=== PATIENT | female | born 1985 | race Hispanic/Latino ===

== ENCOUNTER 2018-08-07 10:46 | Outpatient (CLI) | payer OTHER ==
--- NOTE | 2018-08-07 13:22 | ULT ---
ULTRASOUND OBSTETRICAL COMPLETE: DATE: 08/07/2018. HISTORY: A 33-year-old female in . Evaluate size and dates. FINDINGS: number: Clark. lie: Cephalic. Maternal cervix: Obscured. Placenta: Fundal. No placental previa. Amniotic fluid volume: WILLA 16 cm. heart rate: 147 b.p.m. The following anatomy is visualized, with no evidence of anomalies: Head, lateral ventricles, cerebellum, nose and lips, spine, upper limbs, lower limbs, four chamber he art, umbilical cord, cord insertion, stomach, kidneys, and bladder. biometry: Head circumference (HC): 16.9 cm 19 w 4 d Biparietal diameter (BPD): 4.6 cm 19 w 6 d Abdominal circumference (AC): 14.8 cm 20 w 1 d Femur length (FL): 2.9 cm 19 w 0 d Average ultrasound age (AUA): 19 w 5 d Estimated date of delivery (ROSEMARY): 12/27/2018. Last menstrual period (LMP): 03/08/2018. Gestational age by LMP: 21 w 5 d. Estimated weight (EFW): 298 g+/- 44 g (0 lb 11 oz+/- 2 oz). IMPRESSION: 1. Live 2nd trimester intrauterine gestation. 2. Estimated gestational age of 19 weeks, 5 days. 3. Cephalic lie. 4. No anatomical abnormalities. jn [] POS: [facility]
== END 2018-08-07 10:47 | disposition home or self-care (01) ==
LOC: BICULT 10:46
PROVIDERS: ATTEND Family Medicine
DX: Z34.82 Encounter for supervision of other normal pregnancy, second trimester (principal); Z3A.19 19 weeks gestation of pregnancy
CPT/HCPCS: 76805

== ENCOUNTER 2018-10-24 18:07 | Day surgery (SDC) | payer OTHER ==
--- NOTE | 2018-10-24 19:30 | PDOC.FPRHP ---
- History of Present Illness Chief Complaint: right sided swelling History of Present Illness: 33 yo @ 30.6wks with EDC 12/27 presents with right sided swelling and lower back pain since after school let out today. She was lifting a lot of boxes earlier today at school and was told by the school nurse that she should come be seen. She felt like her right hand was swollen. She denies contractions. Endorses movement. Denies VB, dysuria, discharge. She endorsed some lower back pain earlier but denies any back pain now. Actually, seeing her now, she denies any swelling, just noticed it earlier today. She has no sx currently. - Allergies/Adverse Reactions Allergies Allergy/AdvReac Type Severity Reaction Status Date / Time acetaminophen [From Tylenol] Allergy Intermediate Swollen Verified 10/24/18 18: 44 Lips - Home Medications Medication Instructions Recorded Confirmed Type 21/Iron Fu/Folic Acid 1 tablet PO DAILY 03/03/13 03/13/13 History [ Complete Caplet] Ferrous Sulfate [Yvon-Time] 325 mg PO BID 03/13/13 03/13/13 History HYDROcodone/Ibuprofen [Vicoprofen 1 - 2 each PO Q4HR 03/13/13 03/13/13 History 200-7.5 mg Tab] Lanolin Ointment [Lansinoh 1 applic TOP ASDIR PRN 03/13/13 03/13/13 History Ointment] - History PMHx: Prior hx of DVT four years ago on lovenox PSHx: CS x 2 FHx: none Social: denies smoking, alcohol, drug use - Review of Systems General: denies: fever/chills, fatigue Respiratory: denies: cough, congestion, shortness of breath Cardiovascular: denies: chest pain, palpitation, edema Gastrointestinal: denies: nausea, vomiting, diarrhea Genitourinary: denies: dysuria, discharge Skin: denies: rashes, itching Musculoskeletal: denies: pain, tenderness, stiffness, swelling Neurological: denies: numbness, syncope Psychological: denies: anxiety, depression - Vital signs BP: [] HR: [] RR: [] Tmax: [] Pox: []% on [] Wt: [] - Physical Exam Constitutional: NAD, awake, alert and oriented HEENT: normocephalic and atraumatic, PERRLA Neck: no LAD, no JVD, no thyromegaly Heart: RRR, no edema Lungs: no respiratory distress Abdomen: soft, non-tender Neurological: no focal deficit, CN II-XII intact Skin: no rash/lesions, capillary refill <2 seconds Heme/Lymphatic: no unusual bruising or bleeding, no purpura Psychiatric: normal mood and affect, good judgment and insight FMR H&P: A/P - Problem List (1) Third trimester Current Visit: Yes Status: Acute Code(s): Z34.93 - ENCNTR FOR SUPRVSN OF NORMAL PREG, UNSP, THIRD TRIMESTER (2) History of DVT of lower extremity Current Visit: Yes Status: Acute Code(s): Z86.718 - PERSONAL HISTORY OF OTHER VENOUS THROMBOSIS AND EMBOLISM - Plan Disposition/LOS: 33 yo @30.6wks here c/o of swelling of her entire right side earlier today and back pain, now asymptomatic. #sIUP- -Reactive NST, not praveen, +accels #c/o right sided swelling and back pain- -will get an ultrasound, cervical length and fibronectin #hx of DVT- -on lovenox HSaad Cheatham MD, PGY-2 FMR H&P: Upper Level - Plan Date/Time: 10/24/181927 IMarvin MD, have evaluated this patient and agree with findings/plan as outlined by marketing research intern resident. Pertinent changes/additions are listed here.
--- NOTE | 2018-10-24 19:41 | PDOC.LDHP ---
Labor and Delivery H&P Chief complaint: other (right leg swelling; HX DVT in past on lovenox) HPI: CC: right leg swelling and lower back pain HPI: 33 yo with EDC 12/27/18 with above complaints after moving items at work. No VB, no LOF, no recent trauma. Good FM. On lovenox for HX DVT in past ( 4 years ago). Review of Systems: complete ROS completed and as per HPI Current gestational age (weeks): 30 (6 days) Due date: 12/27/18 Dating criteria: last menstrual period Grav: 5 Para: 2 OB History Details: CS x 2 Current complications: none, other (remote HX DVT) Past Medical History: HX ectopic in past and SAB Previous surgical history: low tranverse CS (x2) Allergies/Adverse Reactions: Allergies Allergy/AdvReac Type Severity Reaction Status Date / Time acetaminophen [From Tylenol] Allergy Intermediate Swollen Verified 10/24/18 18: 44 Lips - Physical Exam Vital signs reviewed and normal: yes General: NAD Heart: RRR Lungs: CTAB Abdomen: gravid Extremeties: no edema FHT: category 1 Kenney contractions every: rare - Assessment Discomforts of at 30 weeks 6 days, pripor CS x 2, on lovenox for remote DVT HX - Plan Plan: observation in L&D (I have recommended doppler LE; CX length for irreg CTX hx and 2 CS HX, FFN if cervix short.)
--- NOTE | 2018-10-24 21:23 | ULT ---
Right lower extremity venous Doppler ultrasound evaluation HISTORY: right lower extremity swelling. Multiple longitudinal and transverse images of the right lower extremity venous systems obtained usin g multi hertz linear array transducer. Real-time, color flow and spectral waveform Doppler analysis demonstrates no evidence of acute or old clot seen in the right common femoral vein, superficial femo ral vein, femoral profunda, popliteal vein and right posterior tibial veins. No evidence of clot seen in the right greater saphenous vein. IMPRESSION: no evidence of right lower extremity deep venous thrombosis.
--- NOTE | 2018-10-24 21:24 | PDOC.EVN ---
Event Note - Event Note Event Note: Leg doppler neg and cx 4cm
--- NOTE | 2018-10-24 21:25 | ULT ---
Limited pelvic ultrasound history: Evaluate cervical length. Multiple longitudinal and transverse images of the cervix is obtained using multi hertz endovaginal t ransducer. Real-time images obtained. The cervical length measures 4.3 cm in length. IMPRESSION: Cervical length measures 4.3 cm.
== END 2018-10-24 21:24 | disposition home or self-care (01) ==
LOC: L&D/OP 18:07
PROVIDERS: ATTEND Family Medicine
DX: O26.893 Other specified pregnancy related conditions, third trimester (principal); M54.5 Low back pain; M79.89 Other specified soft tissue disorders; Z86.718 Personal history of other venous thrombosis and embolism; Z3A.30 30 weeks gestation of pregnancy; Z79.899 Other long term (current) drug therapy; Z88.6 Allergy status to analgesic agent
CPT/HCPCS: 99282

== ENCOUNTER 2018-11-06 14:31 | Day surgery (SDC) | payer OTHER ==
[2018-11-06] MEDS ORDERED: Iron Sucrose Complex 500 MG in Sodium Chloride 0.9% 250 ML 250 ML IVPB SCH (15:45)
[2018-11-06] MEDS ORDERED: Sodium Chloride 0.9% 1,000 ML IV SCH (15:45)
[2018-11-06 15:49] VITALS: BP 115/68; TEMP 98.3
[2018-11-06 15:53] VITALS: BMI 28.3
[2018-11-06] MEDS ORDERED: Butorphanol Tartrate 1 MG/ML VIAL ONE (20:33)
[2018-11-06] MEDS ORDERED: Butorphanol Tartrate 1 MG/ML VIAL SLOW IVP SCH (20:45)
[2018-11-06] MEDS ORDERED: Promethazine HCl 25 MG/ML VIAL SLOW IVP SCH (20:45)
== END 2018-11-06 23:10 | disposition home or self-care (01) ==
LOC: L&D/OP 14:31
PROVIDERS: ATTEND Family Medicine
DX: O99.019 Anemia complicating pregnancy, unspecified trimester (principal); D64.9 Anemia, unspecified; Z79.01 Long term (current) use of anticoagulants; Z88.8 Allergy status to other drugs, medicaments and biological substances
CPT/HCPCS: 96361; 96365; 96366; 96375; 99282; J0595; J1756; J2550; J7050

== ENCOUNTER 2018-12-17 05:45 | Inpatient (IN) | payer OTHER ==
[2018-12-17] MEDS ORDERED: hydrALAZINE 20 MG/ML VIAL SLOW IVP PRN (06:14)
[2018-12-17] MEDS ORDERED: Promethazine HCl 25 MG/ML VIAL IM PRN (06:14)
[2018-12-17] MEDS ORDERED: Ondansetron PF 4 MG/2 ML Vial IVP PRN (06:14)
[2018-12-17] MEDS ORDERED: CEFAZOLIN 2 GM in Premix Bag 1 BAG IVPB SCH (06:14)
[2018-12-17] MEDS ORDERED: Bicitra 30 ML UDCUP PO SCH (06:14)
[2018-12-17] MEDS ORDERED: MORPHINE 5 MG/10 ML PF VIAL ONE (06:30)
[2018-12-17] MEDS ORDERED: Fentanyl 100 MCG/2 ML VIAL ONE (06:30)
[2018-12-17] MEDS ORDERED: Oxytocin 10 UNITS/ML VIAL ONE (06:31)
[2018-12-17] MEDS ORDERED: Phenylephrine HCL 10 MG/ML VIAL ONE (06:31)
[2018-12-17] MEDS ORDERED: Ondansetron PF 4 MG/2 ML Vial ONE ×2 (06:31→07:55)
[2018-12-17] MEDS ORDERED: Ketorolac Tromethamine 30 MG/ML VIAL ONE (06:31)
[2018-12-17] MEDS ORDERED: ePHEDrine/0.9% NaCl/PF SYRINGE 50 mg/10 ml ONE (06:31)
[2018-12-17 06:37] VITALS: BMI 31.4
[2018-12-17 07:09] LABS: Hemoglobin 11.4 g/dL (12.0-16.0); Mean Corpuscular HGB CONC 33.3 g/dL (32.0-36.0); Mean Corpuscular Hemoglobin 29.2 pg (27.0-31.0); Mean Corpuscular Volume 87.5 fL (78.0-98.0); Mean Platelet Volume 9.2 fL (7.4-10.4); Platelet Count 193 thou/uL (130-400); RBC Distribution Width 14.4 % (11.5-14.5); White Blood Cell (WBC) Count 12.2 thou/uL (4.8-10.8)
[2018-12-17] MEDS ORDERED: Butorphanol Tartrate 1 MG/ML VIAL ONE (07:12)
[2018-12-17 07:14] LABS: Syphilis Antibody Nonreactive (Nonreactive); Syphilis Antibody Index 0.02 S/CO (<1.00 Non-Reactive)
[2018-12-17] MEDS: Lactated Ringer's 1,000 ML IV SCH ×2 (07:17→10:02)
--- NOTE | 2018-12-17 07:48 | CT ---
Head CT without contrast 12/17/2018: Comparison: None HISTORY: Headache, dilated left pupil TECHNIQUE: Axial CT imaging at 5 mm intervals from vertex through skull base without contrast FINDINGS: Imaged paranasal sinuses and mastoid air cells are well aerated. No displaced calvarial fra cture. No intracranial hemorrhage, midline shift, mass effect, or ventricular enlargement IMPRESSION: No acute findings
[2018-12-17] MEDS ORDERED: Metoclopramide HCl 10 MG/2 ML VIAL IVP SCH ×2 (08:00→09:00)
[2018-12-17] MEDS ORDERED: diphenhydrAMINE 50 MG/ML VIAL ONE (08:19)
[2018-12-17 08:29] LABS: HBSAg Index 1.12 S/CO (0-0.99)
[2018-12-17 08:30] LABS: Hep B Surf Ag Reflx Confirmation S/CO (NonReactive)
[2018-12-17] MEDS: diphenhydrAMINE 50 MG/ML VIAL IVP SCH ×2 (08:31→22:22)
--- NOTE | 2018-12-17 09:53 | MRI ---
MRI BRAIN WITHOUT CONTRAST: HISTORY: Headache, dilated left pupil CORRELATION: CT scan from 12/17/2018. FINDINGS: No restricted diffusion is seen. The ventricular size is appropriate and the basilar cisterns are pat ent. No evidence of acute infarct, hemorrhage, midline shift or abnormal extra-axial fluid collections is seen. The visualized paranasal sinuses and mastoid air cells are well-aerated. IMPRESSION: No evidence of acute intracranial process.
[2018-12-17 10:52] LABS: Bilirubin Negative (Negative); Blood, Urine Negative (Negative); Clarity Clear (Clear); Glucose, Urine (Dipstick) Normal (Negative); Leukocyte Negative Leu/uL (Negative); Nitrite Negative (Negative); Protein, Urine (Dipstick) Negative (Neg-Trace); Urobilinogen Normal mg/dL (Less than 2)
[2018-12-17 11:10] LABS: ALT (SGPT) 11 U/L (8-55); AST (SGOT) 16 U/L (5-34); Albumin 3.5 g/dL (3.5-5.0); Alkaline Phosphatase 162 U/L (40-150); Anion Gap 14 mmol/L (10-20); BUN (Urea Nitrogen) 12 mg/dL (7.0-18.7); Bilirubin, Total 0.5 mg/dL (0.2-1.2); Calc. Creatinine Clearance 195 mL/min (70-130); Calcium 9.5 mg/dL (7.8-10.44); Carbon Dioxide 20 mmol/L (22-29); Chloride 106 mmol/L (98-107); Estimated GFR-MDRD Greater than 90; Globulin 2.5 g/dL (2.4-3.5); Glucose 105 mg/dL (70-105); Potassium 3.8 mmol/L (3.5-5.1); Sodium 136 mmol/L (136-145)
--- NOTE | 2018-12-17 19:35 | CON ---
DATE OF CONSULTATION: 12/17/2018 CHIEF COMPLAINT: Blurred vision in the left eye. HISTORY OF PRESENT ILLNESS: I was called by her primary admitting MD who reported to me that they are seeing a pupillary dilatation, and they concerned about any intracranial event. The patient reports she has had migraine in the left side of the head, and this was associated blurred vision. At 2:30 a.m. in the morning, she woke up with a headache, and she felt the headache was around her left eye. She had a throbbing sensation. She never had migraines before. She never had casual headaches either. She was feeling nauseous. She had photophobia and did not have any phonophobia with this. She did not have any weakness or dizziness. Her primary symptom is headache with blurred vision on the left side. PREVIOUS MEDICAL HISTORY: She is and is here for her delivery. She is getting ready to deliver her child. Otherwise, she is healthy. MEDICATIONS: From home noted, she is not on any regular medications at home other than vitamins. PAST SURGICAL HISTORY: She had 2 C-sections. No other surgery. FAMILY HISTORY: Negative for any migraine headaches. SOCIAL HISTORY: She does not drink or smoke. 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 She lives with her family. REVIEW OF SYSTEMS: PULMONARY: Negative for cough or shortness of breath. GI: Negative for any nausea, vomiting, or diarrhea. CARDIOVASCULAR: Negative for any chest pain or palpitations. NEUROLOGIC: Positive for headache and blurred vision. DERMATOLOGIC: Negative for any rash. DIAGNOSTIC DATA: Her workup so far; MRI of the brain was reported as negative for any acute infarct or any acute intracranial process. CT of the head was also done and did not show any acute findings. Lab workup; white count 12.2, hemoglobin 11.4, hematocrit 34.1, and platelet count 193. Sodium 136, potassium 3.8, chloride 106, bicarb 20, BUN 12, creatinine 0.56, and alkaline phosphatase was slightly elevated at 162. Rest of the workup was negative. Urinalysis is negative. PHYSICAL EXAMINATION: VITAL SIGNS: Temperature was 98.1, pulse 104, and blood pressure 139/84. GENERAL APPEARANCE: Well-built, well-nourished lady, who is . CHEST: Clear vesicular breathing. CARDIOVASCULAR: S1 and S2 heard. No murmurs. ABDOMEN: Soft, uterus. NEUROLOGIC: Higher intellectual functions, normal orientation to time, place, and person and appropriate conversation. Cranial nerves 2 through 12, pupils right was 3 mm reactive to light. Left pupil was 4 mm and sluggishly reactive to light with a delayed response, and she has very mild facial asymmetries on the left side. Normal sensation of face bilaterally. Tongue midline. No atrophy noted. Normal elevation of palate. Motor examination; bulk normal and tone normal. Strength, 5/5 on the right side as well as left lower extremity. Left upper extremity strength was slightly weak with 5-/5. Muscle groups tested are deltoid, biceps, triceps, wrist extension and flexion, finger extension and flexion bilaterally and deep tendon reflexes were 1+ throughout. Sensory, normal to touch. Cerebellar, [id number] normal. [id number]-[id number] was also normal. IMPRESSION: The patient is a 33-year-old lady who is . She presents to the hospital with headache and blurred vision, and seamer elastic band's primary concern is the abnormal pupils. Currently, her CT is negative. MRI is negative. Neurological exam showed slightly sluggish reaction of the left pupil, and she had very mild weakness in the left arm association with the headache, which is unilateral, associated with nausea and the photophobia, is more consistent with a slightly complicated migraine event rather than any other intracranial event. RECOMMENDATIONS: Please use codeine as needed for migraine. I understand she received a headache cocktail from the Obstetrics Team. I will follow up with you as needed. Once the headache has resolved, she can follow up with Neurology as an outpatient. Job ID: [id number]
[2018-12-18 06:10] LABS: Hep B Surface AG-Rflx Sendout Negative (Negative)
[2018-12-18] MEDS ORDERED: MORPHINE 5 MG/10 ML PF VIAL ONE (06:55)
[2018-12-18] MEDS ORDERED: diphenhydrAMINE 50 MG/ML VIAL ONE ×2 (06:56→15:52)
[2018-12-18] MEDS ORDERED: Oxytocin 10 UNITS/ML VIAL ONE (06:56)
[2018-12-18] MEDS ORDERED: Phenylephrine HCL 10 MG/ML VIAL ONE (06:56)
[2018-12-18] MEDS ORDERED: Ondansetron PF 4 MG/2 ML Vial ONE ×2 (06:56→15:52)
[2018-12-18] MEDS ORDERED: Dexamethasone 4 mg/ml Vial ONE (06:56)
[2018-12-18] MEDS ORDERED: ePHEDrine/0.9% NaCl/PF SYRINGE 50 mg/10 ml ONE (06:56)
[2018-12-18] MEDS ORDERED: Ketorolac Tromethamine 30 MG/ML VIAL ONE ×2 (06:56→15:52)
[2018-12-18] MEDS ORDERED: HYDROmorphone 2 MG/ML VIAL SLOW IVP PRN (07:01)
[2018-12-18] MEDS ORDERED: Ondansetron HCl/PF 4 MG/2 ML Vial IVP PRN (07:01)
[2018-12-18] MEDS ORDERED: L&D-Morphine 4 MG/ML VIAL SLOW IVP PRN (07:01)
[2018-12-18] MEDS ORDERED: Meperidine HCl/PF 25 MG/ML VIAL SLOW IVP PRN (07:01)
[2018-12-18] MEDS ORDERED: Ondansetron PF 4 MG/2 ML Vial IVP PRN ×2 (07:02→10:01)
[2018-12-18] MEDS ORDERED: Naloxone HCl 0.4 mg/ml Vial IVP PRN ×2 (07:02)
[2018-12-18] MEDS ORDERED: Naloxone HCl 0.4 mg/ml Vial IV PRN (07:02)
[2018-12-18] MEDS ORDERED: Ketorolac Tromethamine 30 MG/ML VIAL IVP PRN (07:02)
[2018-12-18] MEDS ORDERED: diphenhydrAMINE 50 MG/ML VIAL IVP PRN (07:02)
[2018-12-18] MEDS ORDERED: Ketorolac Tromethamine 30 MG/ML VIAL IVP SCH (07:15)
[2018-12-18] MEDS ORDERED: Communication Order-Pharmacy FS SCH (07:15)
[2018-12-18] MEDS ORDERED: Midazolam HCl 2 mg/2 ml Vial ONE (07:40)
--- NOTE | 2018-12-18 07:54 | CON ---
DATE OF CONSULTATION: 12/17/2018 PRIMARY OB: Dr. Tammi Moreno. CHIEF COMPLAINT: Delayed with history of deep vein thrombosis and now abnormal pupil findings and severe headache. HISTORY OF PRESENT ILLNESS: The patient is a 33-year-old, G4, P2 female with an intrauterine at 39 weeks and 3 days, presenting to Labor and Delivery for a scheduled . However, the patient when arrived had an enlarged left pupil, which was a new finding in conjunction with a severe headache that woke her from her sleep. Initial workup including a CT of the head did not demonstrate any acute findings. The patient had been off Lovenox for 24 hours prior to the date of presentation in preparation for her . The patient had been on Lovenox throughout her due to history of DVT in her last . PINBALL MACHINE REPAIRER was consulted for overall evaluation of this situation and at the time of the request, the patient is being treated for symptoms of a migraine with suspicion that this may be unusual findings associated with such. Neurology was consulted and MRI performed and found also to be negative. At the time of my evaluation, the patient reports that she was still having a headache that had moved to her eye. She reports blurry vision of the left eye that had no other symptomatology. No weakness. No facial drooping. No slurred speech. No memory deficits. The patient denied uterine contractions, vaginal bleeding, and reported good movement. PAST MEDICAL HISTORY: Negative. PAST SURGICAL HISTORY: Two prior C-sections. ALLERGIES: NO KNOWN DRUG ALLERGIES. MEDICATIONS: vitamins and Lovenox. FAMILY HISTORY: Negative for migraines. SOCIAL HISTORY: Denies drug, alcohol, or tobacco use. REVIEW OF SYSTEMS: Per HPI. PHYSICAL EXAMINATION: VITAL SIGNS: Blood pressure 114/65, heart rate of 84, temperature 98.4, and saturating 97% on room air. GENERAL: She appeared to be in no acute distress. She is alert, oriented, cooperative, and pleasant to interact with. HEAD: Normocephalic and atraumatic. LUNGS: Clear to auscultation bilaterally. ABDOMEN: Gravid and soft. HEENT: Face shows no evidence of facial droop. She is able to smile. Eye control seems to be appropriate. Her right eye, pupil was responsive to light and accommodation. Her left eye was more sluggish and/or dilated, did attempt to respond to light and accommodation though not as profound. heart tracing demonstrated a fetus with a baseline in the 130s with moderate long-term variability, positive 15 x 15 accelerations, no decelerations. The patient had few contractions on the monitor, some irritability, but not actively felt by the patient. ASSESSMENT: The patient is a 33-year-old multiparous female with an intrauterine at 39 weeks and 3 days, presenting for scheduled repeat with abnormal findings concerning for intracranial process; however, no findings were present on CT or MRI. Neurology consult suggests that these findings are associated with a migraine and has predicted that these symptoms will resolve over the next couple days. No other recommendations were made at that time. From the standpoint of her , her continues to progress in normal fashion, does not seem to be affected at all by any other processes that are occurring. The patient has no evidence of labor at this time and no indication that will facilitate treatment or evaluation of these abnormal findings. PLAN: Plan at this time is for the patient to remain in the hospital for in-house observation and have performed in the following morning with Dr. Tammi Moreno. In the meantime, we will place on SCDs for DVT prophylaxis. Lovenox will be held. Fetus has a category 1 tracing and reactive NST and looks to be unaffected by what is going on with the patient. Job ID: [id number]
[2018-12-18] MEDS ORDERED: hydrALAZINE 20 MG/ML VIAL SLOW IVP PRN (10:01)
[2018-12-18] MEDS ORDERED: Simethicone Chewable 80 MG TAB PO PRN (10:01)
[2018-12-18] MEDS ORDERED: diphenhydrAMINE 25 MG CAP PO PRN (10:01)
[2018-12-18] MEDS ORDERED: Bisacodyl 10 MG SUPP PR PRN (10:01)
[2018-12-18] MEDS ORDERED: Lanolin Ointment 7 GM TUBE TOP PRN (10:01)
[2018-12-18] MEDS: Ferrous Sulfate 325 MG TAB PO SCH ×2 (11:04→18:56)
[2018-12-18] MEDS: Prenatal Vitamin 1 TAB PO SCH (11:05)
[2018-12-18] MEDS: Enoxaparin Sodium 30 MG/0.3 ML SYRINGE SC SCH (11:09)
--- NOTE | 2018-12-18 11:14 | OP ---
DATE OF PROCEDURE: 12/18/2018 PREOPERATIVE DIAGNOSIS: Term intrauterine with previous section x2 and history of deep venous thrombosis with acute onset ocular migraine headache. POSTOPERATIVE DIAGNOSIS: Term intrauterine with previous section x2 and history of deep venous thrombosis with acute onset ocular migraine headache, status post delivery. PROCEDURE PERFORMED: Repeat low-transverse section. ASSISTANTS: 1. Dr. Horvath. 2. Griffin Osman MS-3. ANESTHESIA: Spinal anesthetic. COMPLICATIONS: No complications. INDICATIONS FOR PROCEDURE: Noted that the patient had been admitted on 12/17/2018, for a repeat section, but noted to have acute onset of severe headache with left pupil dilated. She had a normal CT scan and MRI and a Neurology consult with diagnosis most likely ocular atypical migraine headache. The patient was given medications and observed 24 hours in Labor and Delivery with resolution of headache, subsequently prepared for her repeat section on 12/18/2018. DESCRIPTION OF PROCEDURE: After adequate spinal anesthetic, the patient was placed in the supine position. The abdomen was prepped and draped in the usual sterile technique. A Grimm catheter had been placed in her bladder. A Pfannenstiel incision was made through the old scar. Subcutaneous tissue was opened with sharp dissection. Fascia was opened with sharp dissection. Peritoneum was opened with sharp and blunt dissection and noted that the abdomen was still with a gravid uterus. A large Jacobo O retractor was placed, and a low transverse incision was made on the uterus. Membranes were ruptured. Clear fluid was encountered, and a viable male was delivered from vertex presentation without difficulty. breathed and cried spontaneously. Nose and mouth had been bulb suctioned. Remainder of the was delivered without difficulty. After roughly 30 seconds with drying of the baby, the cord was clamped and cut. was handed to Neonatology Team. Cord blood was obtained. Placenta was delivered spontaneously and appeared intact. Ring forceps were placed over the hysterotomy edges, and the uterus was closed in continuous fashion using 0 Monocryl suture. Hemostasis was adequate. Inspection of gutters revealed no clots. The Jacobo O retractor was removed, and a FISH was placed for better visualization, and the peritoneum was then closed in continuous fashion using 2-0 chromic. The FISH had been removed prior to the final closure. Fascia was then closed in continuous fashion using 0 Vicryl, and the subcutaneous tissue was closed with approximation of 2-0 plain. It was noted that instrument counts were correct x2. The skin was closed using heron. The patient tolerated the procedure well, to go to recovery room in good condition. Noted that the baby is a viable male with Apgars 8 at one minute and 9 at five minuets, weight 8 pounds 6 ounces. There were no complications. Minimal adhesions. Quantitative blood loss pending with EBL approximately 500. Job ID: [id number]
[2018-12-18] MEDS: Lactated Ringer's 1,000 ML IV SCH (12:35)
[2018-12-18] MEDS ORDERED: ePHEDrine 50 MG/ML VIAL ONE (15:52)
[2018-12-18] MEDS ORDERED: Dexamethasone 20 MG/5 ML VIAL ONE (15:52)
[2018-12-18] MEDS ORDERED: PHENYLEPHRINE-NS 100 MCG/ML 10 ML SYRINGE ONE (15:52)
[2018-12-18] MEDS: Ibuprofen 800 MG TAB PO SCH ×2 (18:56→21:22)
[2018-12-18] MEDS: Docusate Calcium (SURFAK) 240 MG CAP PO SCH (21:22)
[2018-12-19 05:43] LABS: Hemoglobin 8.9 g/dL (12.0-16.0); Mean Corpuscular HGB CONC 32.6 g/dL (32.0-36.0); Mean Corpuscular Hemoglobin 28.9 pg (27.0-31.0); Mean Corpuscular Volume 88.7 fL (78.0-98.0); Platelet Count 174 thou/uL (130-400); RBC Distribution Width 14.5 % (11.5-14.5); Red Blood Cell (RBC) Count 3.07 mill/uL (4.20-5.40); White Blood Cell (WBC) Count 10.6 thou/uL (4.8-10.8)
[2018-12-19] MEDS: Ibuprofen 800 MG TAB PO SCH ×3 (06:16→21:35)
[2018-12-19] MEDS: traMADol HCl 50 MG TAB PO PRN ×3 (06:17→17:53)
[2018-12-19] MEDS: Enoxaparin Sodium 30 MG/0.3 ML SYRINGE SC SCH (08:22)
[2018-12-19] MEDS: Prenatal Vitamin 1 TAB PO SCH (08:22)
[2018-12-19] MEDS: Docusate Calcium (SURFAK) 240 MG CAP PO SCH ×2 (08:23→21:35)
[2018-12-19] MEDS: Ferrous Sulfate 325 MG TAB PO SCH ×2 (08:23→21:34)
[2018-12-20] MEDS: traMADol HCl 50 MG TAB PO PRN ×3 (04:51→19:21)
[2018-12-20] MEDS: Ibuprofen 800 MG TAB PO SCH ×3 (06:24→21:42)
[2018-12-20] MEDS: Enoxaparin Sodium 30 MG/0.3 ML SYRINGE SC SCH (10:05)
[2018-12-20] MEDS: Docusate Calcium (SURFAK) 240 MG CAP PO SCH ×2 (10:05→21:42)
[2018-12-20] MEDS: Ferrous Sulfate 325 MG TAB PO SCH ×2 (10:06→21:41)
[2018-12-20] MEDS: Prenatal Vitamin 1 TAB PO SCH (10:06)
--- NOTE | 2018-12-20 17:23 | PDOC.PP ---
Post Progress Note Post Day #: 2 Subjective: Having increased blurry vision in her left eye. Pain overall controlled, having no other issues. PO intake tolerated: yes Flatus: yes Ambulation: yes Vital Signs (12 hours) Temp Pulse Resp BP 12/20/18 08:00 98.2 F 89 20 126/58 L Weight Weight 189 lb - Physical Examination General: NAD Respiratory: non-labored breathing Abdominal: lochia (normal), no distention, appropriately TTP Fundus firm & at: below umbilicus Skin: CS incision dry & intact, no rash Neurological: no gross focal deficits Psychiatric: A&Ox3, normal affect Result Diagrams: 12/19/18 05:27 12/17/18 06:16 Additional Labs: Post Labs Blood Type O POSITIVE 12/17/18 06:16 Hep Bs Antigen Reflx Confirmation S/CO (NonReactive) H 12/17/18 06:16 (1) Ocular migraine Status: Acute (2) delivery delivered Code(s): O82 - ENCOUNTER FOR DELIVERY WITHOUT INDICATION Status: Acute (3) History of DVT of lower extremity Code(s): Z86.718 - PERSONAL HISTORY OF OTHER VENOUS THROMBOSIS AND EMBOLISM Status: Acute - Assessment/Plan 1. Continue routine postop care 2. Continue lovenox for hx DVT 3. Patient complaints of blurry vision in left eye - had normal MRI and CT scan. If sx continue, recommend consult with ophthalmology for evaluation.
[2018-12-21] MEDS: traMADol HCl 50 MG TAB PO PRN ×2 (01:15→08:29)
[2018-12-21] MEDS: Ibuprofen 800 MG TAB PO SCH ×2 (05:56→14:42)
[2018-12-21] MEDS ORDERED: Ondansetron ODT 4 MG TAB PO PRN (09:01)
[2018-12-21] MEDS ORDERED: Fiorinal 325/50/40 mg Tablet PO PRN (09:51)
[2018-12-21] MEDS: Ferrous Sulfate 325 MG TAB PO SCH (10:10)
[2018-12-21] MEDS: Prenatal Vitamin 1 TAB PO SCH (10:10)
[2018-12-21] MEDS: Enoxaparin Sodium 30 MG/0.3 ML SYRINGE SC SCH (10:10)
[2018-12-21] MEDS: Docusate Calcium (SURFAK) 240 MG CAP PO SCH (10:10)
--- NOTE | 2018-12-21 10:43 | PRG ---
DATE OF SERVICE: 12/21/2018 TIME OF SERVICE: 10 o'clock. SUBJECTIVE: The patient is resting relatively comfortable, somewhat tearful. OBJECTIVE: VITAL SIGNS: Temperature 98.0, pulse 75, respirations 20, and pulse ox 98%, blood pressure 126/68. GENERAL: The patient complains of persistent and somewhat worsening optical symptoms associated with her headaches that developed a week ago. The patient does not notice that she has any facial weakness or drooping. She states she is having some worse double vision than she has had before. NEURO: Revealed a slightly dilated left pupil. I have not seen it previously, so I do not have it to compare to, but in discussion with Dr. Tammi Moreno, it was told that it will probably take a while to resolve. Facial drooping is not appreciable. No left-sided weakness is noted. ABDOMEN: Abdominal incision is nontender, nonerythematous. EXTREMITIES: No clubbing, cyanosis, or edema. IMPRESSION: Peripartum headache with neurologic symptoms. No real headache medication has been administered postoperatively. The patient is allergic to Tylenol. In discussing this with the patient, while she seems to have some change in the visual symptoms associated with this, it appears she has had visual symptoms for over a week. The patient does not have any dark spots or scotoma in her vision. She describes more of a pain and pressure in her head that is behind her eyeball. PLAN: Zofran and Bupap and re-evaluate. Consider the patient discharge with followup with Dr. Tammi Moreno at her office tomorrow. Job ID: [id number]
[2018-12-21 11:34] VITALS: BP 154/63; TEMP 97.9
--- NOTE | 2018-12-21 15:28 | PRG ---
DATE OF SERVICE: 12/21/2018 TIME SPENT: Greater than 30 minutes. SUBJECTIVE: Ms. Birmingham is a 33-year-old, who underwent a repeat section. She has a history of DVT of the lower extremity. She is in the third trimester and she presented with an ocular migraine. During her hospitalization, she had a brain CT, brain MRI, neurology consultation, PIPE INSPECTOR consultation. She was delivered on the and discharged home on the . The patient's course was complicated by mildly dilated pupil and migraine headache on the left. This improved during her hospitalization. She was seen by Neurology. Please see their consultation report. She persisted to have blurred vision in the left eye on the . I attempted to obtain an Ophthalmology consult, however, no Ophthalmology consult was available as no one is on Optho ER call at [place] and Dr. Abel, who often provides consultation willingly is out of town on vacation. The patient's blurred vision and headache responded moderately to Bupap. She is discharged home on butalbital/caffeine/aspirin as well as tramadol with ER precautions and followup with Dr. Tammi Moreno in one day. Job ID: [id number]
== END 2018-12-21 16:00 | disposition home or self-care (01) | DRG 787 ==
LOC: L&D 05:45 → 3SE 12-18 11:02
PROVIDERS: ADMIT Family Medicine; ATTEND Family Medicine
PROC: 10D00Z1 Extraction of Products of Conception, Low, Open Approach (ICD-10-PCS; principal; 2018-12-18)
DX: O34.211 Maternal care for low transverse scar from previous cesarean delivery (principal); O99.354 Diseases of the nervous system complicating childbirth; G43.809 Other migraine, not intractable, without status migrainosus; H57.04 Mydriasis; O99.89 Other specified diseases and conditions complicating pregnancy, childbirth and the puerperium; Z86.718 Personal history of other venous thrombosis and embolism; Z88.8 Allergy status to other drugs, medicaments and biological substances; Z3A.39 39 weeks gestation of pregnancy; Z37.0 Single live birth
CPT/HCPCS: 36415; 51702; 70450; 70551; 80053; 81003; 85027; 86780; 86850; 86900; 86901; 87340; J0595; J0690; J1100; J1200; J1650; J1885; J2250; J2274; J2370; J2405; J2590; J2765; J3010; J3490; Q0162; Q0163

== ENCOUNTER 2018-12-24 14:15 | Inpatient (IN) | payer OTHER ==
--- NOTE | 2018-12-24 16:07 | MRI ---
MR VENOGRAM OF THE HEAD: DATE: 12/24/2018. HISTORY: Dilated left pupil with migraine headaches, history of blood clots. TECHNIQUE: Routine 2-D noncontrast-enhanced [id number] MR angiography of the brain obtained. FINDINGS: Superior sagittal sinus, internal cerebral veins, straight sinus, vein of Christiano, bilateral transverse sinuses and imaged portions of bilateral internal jugular veins appear patent. There is attenuation of the posteromedial aspect of the transverse sinus on the left, likely on the basis of normal asymm etry. There is probable flow-related artifact within the bilateral internal jugular veins, right gre ater than left. The internal jugular vein on the right is dominant. IMPRESSION: Grossly unremarkable MR venogram. Correlation with brain MRI with and without contrast is suggested using cranial nerve protocol if there is continued cranial nerve symptoms involving the left eye. Results and recommendation for contrast-enhanced brain MRI called to Dr. Allen at 3:55 p.m. 12/25/19 19. CODE CR POS: [facility]
--- NOTE | 2018-12-24 16:19 | MRI ---
EXAM: MRI of the brain without and with contrast HISTORY: Left eyelid and ocular muscle palsy COMPARISON: None TECHNIQUE: Multiplanar multisequence MR images were obtained of the brain without and with IV contras t. FINDINGS: The brain demonstrates normal signal intensity on all obtained sequences. No restricted diffusion. No abnormal enhancement. No hydronephrosis. No extra-axial fluid collection or intracranial hemorrhage. Thin cuts through the skull base shows a normal appearance of the cranial nerves. The expected flow voids are present. Corpus callosum, pituitary, and craniocervical junction are within normal limits. The calvarium and overlying soft tissues are unremarkable. The paranasal sinuses and mastoid air cells are well aerated. IMPRESSION: No evidence of acute intracranial abnormality.
[2018-12-24] MEDS ORDERED: methylPREDNISolone Sod Succ/PF 125 MG/2 ML VIAL ONE (17:03)
[2018-12-24] MEDS ORDERED: Ibuprofen 200 MG TAB PO PRN (19:20)
[2018-12-24 21:32] VITALS: BMI 29.4
[2018-12-24] MEDS: Famotidine 20 MG TAB PO SCH (21:34)
--- NOTE | 2018-12-25 02:24 | HP ---
CHIEF COMPLAINT: Drooping of the left eye. HISTORY OF PRESENT ILLNESS: The patient is a 33-year-old female with no significant past medical history, recently had a on December 18. The patient states that however prior to her , which was last week on Friday, she started having sharp pain around her left eye. She also stated that she started having a throbbing-like sensation to the left side of her brain. The patient stated that she did bring this up with her primary care, who initially thought that this was a migraine and prescribed her some medications. However, the patient is allergic to even Tylenol and did not take any prescription. She stated that her pain would wax and wane. She stated that initially on , she was supposed to get a ; however, due to her worsening symptoms and had photophobia of the left eye, her was postponed and at that time, CT and a brain MRI was performed, which was on December 17. The brain CT and the MRI did not show any acute intracranial processes. She then underwent a and had a healthy baby. The patient stated that she was discharged on Friday and before going home, she noticed that she was unable to even open her left eye. She stated that she had intense throbbing pain and sharp pain on her left eye, and the throbbing sensation was on her whole head. She denies any fevers or chills, any nausea, or vomiting; however, she did have significant double vision and blurry vision of her left eye. The patient denies any sexually transmitted illnesses. She denies any abnormal Pap smears. She states that she does not have a history of migraines. She states that this has never happened to her before. PAST MEDICAL HISTORY: She denies any past medical history; however, per records, she has had a history of DVT. PAST SURGICAL HISTORY: She has had three C sections. FAMILY HISTORY: Father with pancreatic cancer at the age of 59. SOCIAL HISTORY: She denies any alcohol use, drug use, or any smoking history. She is a full code. Lives with her family. REVIEW OF SYSTEMS: All negative except for the ones mentioned above in the HPI. PHYSICAL EXAMINATION: VITAL SIGNS: Are as of the following; Temperature of 98.8, blood pressure 145/90, heart rate of 70, oxygen saturation 100% on room air. GENERAL: She is awake, alert, and oriented x3. Does not appear in any distress. HEENT: Her left eyelid is completely closed. Her left pupil is not reactive. Her right pupil is reactive. The patient has a lateral gaze. Convergence is intact on her right eye; however, is not on her left. She is unable to pass her midline. On extraocular muscle exam, the patient is able to look completely to the left with both her eyes; however, when turning right, she is unable to move the left eye past her midline. The patient also states that her left eye is blurry and she sees double. She is able to raise her eyebrows up. She is able to puff her cheeks. Her tongue is midline and her sensation is intact on her face. CV: S1 and S2 present. No murmurs, rubs, or gallops. ABDOMEN: Soft and nontender. Bowel sounds are present x2. LUNGS: Clear to auscultation. No rhonchi or wheezes noted. EXTREMITIES: No edema. Pedal pulses are present. NEUROVASCULAR: Otherwise, no focal deficits noted. SKIN: No cuts, lesions, or bruises noted. LABORATORY RESULTS: There were no laboratory results that were drawn. She did have several scans. She had an MRA brain, which included the MRV, which was negative and based on that, it was recommended to do an MRI with and without contrast keeping cranial nerves to be the focus of the scans, which was also done, which was negative. She was seen by ophthalmology. ASSESSMENT AND PLAN: The patient is a 33-year-old female, who recently had a baby, who presents to the hospital with left eye drooping eyelid. 1. Left droopy eyelid, could be possible most likely secondary to oculomotor nerve palsy, which is cranial nerve 3. The etiology for it could be inflammatory, could be infectious, could be secondary to a stroke versus a clot. She did have an MRV and an MRA, which was negative. She also had a brain MRI, which was negative. She has been seen by Ophthalmology. We will go ahead and get Neurology and the patient has been started on some steroids. Migraine headaches are also possible; however, she has never had a history of migraine headaches. She has not taken any recent pdzd-[id number]-[id number] medications. She denies any sexually transmitted infections. I will also check an ESR and a CRP and kind of go from there. 2. History of recent . We will continue to monitor. 3. DVT prophylaxis. I will put the patient on some SCDs. Job ID: [id number]
[2018-12-25 05:06] LABS: #Lymphocytes 1.7 thou/uL (1.20-3.40); #Monocytes 0.7 thou/uL (0.11-0.59); #Neutrophils 7.4 thou/uL (1.40-6.50); %Basophils 0.1 % (0.0-1.0); %Eosinophils 0.3 % (0.0-10.0); %Lymphocytes 17.7 % (21.0-51.0); %Monocytes 7.1 % (0.0-10.0); %Neutrophils 74.7 % (42.0-75.0); Hemoglobin 9.8 g/dL (12.0-16.0); Mean Corpuscular HGB CONC 33.2 g/dL (32.0-36.0); Mean Corpuscular Hemoglobin 29.3 pg (27.0-31.0); Mean Corpuscular Volume 88.1 fL (78.0-98.0); Mean Platelet Volume 8.1 fL (7.4-10.4); Platelet Count 256 thou/uL (130-400); RBC Distribution Width 14.3 % (11.5-14.5); Red Blood Cell (RBC) Count 3.36 mill/uL (4.20-5.40); White Blood Cell (WBC) Count 9.8 thou/uL (4.8-10.8)
[2018-12-25 05:18] LABS: Anion Gap 14 mmol/L (10-20); BUN (Urea Nitrogen) 11 mg/dL (7.0-18.7); Calc. Creatinine Clearance 165 mL/min (70-130); Calcium 8.7 mg/dL (7.8-10.44); Carbon Dioxide 23 mmol/L (22-29); Chloride 108 mmol/L (98-107); Estimated GFR-MDRD Greater than 90; Glucose 105 mg/dL (70-105); Potassium 3.8 mmol/L (3.5-5.1); Sodium 141 mmol/L (136-145)
[2018-12-25] MEDS: Famotidine 20 MG TAB PO SCH (08:30)
[2018-12-25] MEDS ORDERED: methylPREDNISolone Sod Succ 40 MG VIAL IVP SCH (09:00)
--- NOTE | 2018-12-25 12:53 | CT ---
CTA HEAD WITH AND WITHOUT CONTRAST: Date: 12/25/18 Multiple axial tomograms obtained following angio protocol. Multiplanar reconstruction and 3D postpro cessing. INDICATION: Left eye diplopia. Question carotid cavernous sinus aneurysm. FINDINGS: The intracranial internal carotid arteries appear patent and symmetric. The cavernous internal caroti d arteries are normal caliber and symmetric. The anterior cerebral arteries appear unremarkable. Middle cerebral arteries are patent and unremarkable. Basilar artery is patent. Posterior cerebrals a re symmetric and patent. [place] is intact. There is no evidence of aneurysm identified. The precontrast CT head shows no evidence of hemorrhage, infarct, mass, or edema. IMPRESSION: Unremarkable CTA of head. No evidence of aneurysm identified. POS: JULI
--- NOTE | 2018-12-25 13:12 | CON ---
DATE OF CONSULTATION: 12/25/2018 CONSULTING PHYSICIAN: Hospitalist Service. IMPRESSION: Complete left third nerve palsy concerning for cerebral aneurysm. PLAN: CT angiogram of the [place]. HISTORY OF PRESENT ILLNESS: Ms. Birmingham is a 33-year-old female, who reports having some prodromal left orbital area pain for about a week. About 4 days ago, she woke up and she had a complete ptosis of the left eyelid. She had just delivered a baby the week prior. 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 The pain intensified significantly this week. She has had some nausea and vomiting. She has never had anything like this before. She denies a history of migraine. She had an MRI of the brain with contrast, which was unremarkable. Her MRV of the brain was unremarkable as well. PAST MEDICAL HISTORY: Otherwise, negative. ALLERGIES: TYLENOL. SOCIAL HISTORY: No tobacco or alcohol. FAMILY HISTORY: Noncontributory. MEDICATIONS: Reviewed. REVIEW OF SYSTEMS: Ten system review of systems is otherwise negative. PHYSICAL EXAMINATION: VITAL SIGNS: Blood pressure 142/59, pulse 76, respirations 18, and temperature 97.8. HEENT: The left pupil is completely dilated. Right pupil is reactive. There is complete ptosis of the left eye. There is ophthalmoplegia on the left with residual lateral deviation. Oropharynx is clear. Cranium; normocephalic and atraumatic. NECK: Supple. EXTREMITIES: No cyanosis or edema. NEUROLOGIC: She is alert and appropriate. Her speech is fluent and clear. Cranial nerves are intact other than what is mentioned above. Motor exam shows equal strength. There is no sensation difference between the extremities. No tremor. Dysmetria is present. Gait was not tested. IMAGING: Reviewed. SUMMARY: The overall clinical picture is quite concerning for a cerebral aneurysm with resultant third nerve palsy on the left. This is confirmed by CT angiogram. She needs an emergent neurosurgical consultation. Job ID: [id number]
--- NOTE | 2018-12-25 14:31 | CT ---
EXAM: CTA head with and without contrast: Axial tomograms obtained pre- and post-IV contrast. Postcontrast images performed with multiplanar re construction and 3-D postprocessing. INDICATIONS: Cranial nerve III palsy. Assess for left carotid cavernous sinus aneurysm. COMPARISON: None. FINDINGS: CT head without contrast shows no intracranial hemorrhage, mass, edema, or other acute proc ess. CTA HEAD: First line intracranial internal carotid arteries are patent. The precavernous portions earnestine ear symmetric. There is asymmetry in the left cavernous ICA. There is a small 3 to 4 mm aneurysm projecting from the cavernous portion of the left ICA. Anterior cerebral arteries, middle cerebral arteries, basilar artery, and posterior cerebral arteries appear unremarkable. No other aneurysm identified. IMPRESSION: 1. 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 Findings discussed with Dr. Farrell.
--- NOTE | 2018-12-25 15:08 | PDOC.HOSPP ---
- Subjective Subjective: pt up in bed, no improvement - Objective Vital Signs & Weight: Vital Signs (12 hours) Temp Pulse Resp BP BP Pulse Ox 12/25/18 11:00 97.7 F 58 L 16 128/65 97 12/25/18 09:27 61 18 146/75 H 12/25/18 07:39 97.8 F 76 16 142/59 H 98 12/25/18 03:57 98.5 F 88 18 141/81 H 96 Weight Weight 171 lb 8 oz I&O: 12/24/18 12/25/18 12/26/18 06:59 06:59 06:59 Intake Total 240 Balance 240 Result Diagrams: 12/25/18 04:44 12/25/18 04:44 ROS - Review of Systems All systems: All other ROS were reviewed and found negative. Eyes: reports: vision change Respiratory: denies: cough, dry, shortness of breath, hemoptysis, SOB with excertion, pleuritic pain, sputum, wheezing, other Cardiovascular: denies: chest pain, palpitations, orthopnea, paroxysmal noc. dyspnea, edema, light headedness, other - Medication Medications: Active Medications Generic Name Dose Route Start Last Admin Trade Name Freq PRN Reason Stop Dose Admin Famotidine 20 mg 12/24/18 21:00 12/25/18 08:30 Pepcid PO 20 mg BID MIGDALIA Administration Ibuprofen 200 mg 12/24/18 19:20 12/24/18 21:42 Motrin PO 200 mg Q6H PRN Administration Pain - Exam Neck: negative: supple, symmetric, no JVD, no Thyromegaly, no lymphadenopathy, no carotid bruit, JVD Heart: negative: RRR, no murmur, no gallops, no rubs, normal peripheral pulses, irregular (no pupil reaction to left eye), diminshed peripheral pulses, murmur present, II/IV, III/IV Hosp A/P (1) Third nerve palsy of left eye Code(s): H49.02 - THIRD [OCULOMOTOR] NERVE PALSY, LEFT EYE Status: Acute - Plan mri brain negative. CTA indicates 3-4mm aneurysm internal carotid. NS consulted. pt notified. Her symptoms have not changed. Neruo and ophthalmology are aware. will discontinue steroids.
[2018-12-25 15:49] VITALS: BP 146/84; TEMP 98
--- NOTE | 2018-12-26 01:35 | CON ---
DATE OF CONSULTATION: This is Micah Rai PA-C dictating a report for Raz Kramer MD. This is a 50-minute initial patient evaluation, of which greater than 50% of the exam was spent counseling and coordinating the patient's care. Remainder of the exam was spent in review of patient's medical records and formulation of treatment plan as well as review of appropriate imaging studies. CHIEF COMPLAINT: Progressive left visual decrease with intermittent headache over the past 10 days. HISTORY OF PRESENT ILLNESS: Ms. Birmingham is a pleasant 33-year-old female, who presents to [facility] for the above complaints. Apparently, the patient is about a week ago. She states earlier that week she experienced significant sudden onset of left-sided headache and third nerve palsy, in which she had left eye ptosis and significant decreased vision into the left eye. She states on Friday of this week, her vision again began to worsen as did her left eye ptosis. She has no symptoms into the right eye. She noticed no falls or any type of weakness and really states today her headache is resolved. Her main issue is visual disturbance on the left. The patient is not on any blood thinners. She does not use tobacco. She does not have a headache history. 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 Her CTA is negative for subarachnoid hemorrhage. By reports, the patient's brain MRA, MRI, and MRV were negative for acute intracranial abnormality. PHYSICAL EXAMINATION: The patient is awake, alert, and appropriate. Her GCS is 15. She is obviously anxious and is tearful throughout the exam. Her right pupil is briskly reactive, and she has good vision in the right eye. She has no appreciative vision into the left eye, and the pupil is dilated, and sluggishly and minimally reactive. It is roughly 6 to 7 mm in diameter. She has no facial droop. She has no slurred speech. She has good strength in all the extremities. She has no decreased hearing into the left ear. IMPRESSION/DIAGNOSES: 1. 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 2. Third nerve palsy. 3. seven days ago. PLAN: At this time, I have discussed the patient's case and imaging with Dr. Kramer. The patient requires a formal angiogram with likely coiling of her aneurysm. I highly suspect that as the patient's volume load increased given her , her aneurysm enlarged causing headache and the third nerve palsy. Nonetheless, this is an emergent issue and the patient needs to be emergently transferred to an outside facility that has formal angiogram capabilities as well as coiling of this aneurysm as it will be difficult to clip surgically. Also, the patient will need a multidiscipline approach given that she is recently , will also need Neurology to continue monitoring her third nerve palsy. I should note that the patient did receive some steroids and she states that her pain has completely resolved after receiving this. I have discussed again the patient's case with her nursing team and Dr. Presley, the hospitalist caring for the patient and we are working diligently to expedite her transfer. Please call with any changes in patient's neurologic status. Again, we will transfer the patient for higher level of care as we cannot provide it at this time. Job ID: [id number]
== END 2018-12-25 17:35 | disposition short-term general hospital (02) | DRG 776 ==
LOC: ERS 14:15 → 2SE 20:51 → OBSVTOIN 12-25 15:31
PROVIDERS: ADMIT Internal Medicine; ATTEND Internal Medicine
DX: O99.89 Other specified diseases and conditions complicating pregnancy, childbirth and the puerperium (principal); O99.43 Diseases of the circulatory system complicating the puerperium; H49.02 Third [oculomotor] nerve palsy, left eye; I72.0 Aneurysm of carotid artery; Z86.718 Personal history of other venous thrombosis and embolism
CPT/HCPCS: 36415; 70496; 70544; 70553; 80048; 85025; 85652; 86140; J2920; J2930

== ENCOUNTER 2018-12-30 16:05 | Outpatient (CLI) | payer OTHER ==
--- NOTE | 2018-12-30 17:03 | ULT ---
EXAM: Bilateral lower extremity venous Doppler US HISTORY: bilateral lower extremity pain FINDINGS: Grayscale, color-flow, Doppler evaluation, spectral analysis of the bilateral lower extremities venou s structures is performed with 2-D imaging. The bilateral common femoral, superficial femoral, popliteal, posterior tibial, proximal greater saphenous and profunda femoral veins are imaged. There is normal luminal compressibility, flow, and augmentation in the visualized deep venous structu res of the left lower extremity. There is absence of compression with preservation of flow secondary to a nonocclusive thrombus in the right common femoral vein. The remainder of the deep venous system of the right lower extremities otherwise patent. This finding is new since the exam of 10/24/2018. IMPRESSION: DVT in the right lower extremity, new since 10/24/2018. Discussed over the telephone with Dr. Tammi Moreno at 4:52 PM
== END 2018-12-30 16:06 | disposition home or self-care (01) ==
LOC: ULT 16:05
PROVIDERS: ATTEND Family Medicine
DX: M79.604 Pain in right leg (principal); M79.605 Pain in left leg; Z86.718 Personal history of other venous thrombosis and embolism
CPT/HCPCS: 93970